=== PATIENT | female | born 1990 | race American Indian/Alaskan Native ===

== ENCOUNTER 2017-12-09 15:49 | Emergency (ER) | payer OTHER, MEDICAID ==
[2017-12-09 16:55] VITALS: BMI 25.0
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
[2017-12-09 20:57] VITALS: BP 112/70; PULSE 70; RESP 18; TEMP 97.8
[2017-12-09 21:24] VITALS: O2SAT 100
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
== END 2017-12-09 20:56 | disposition home or self-care (01) ==
LOC: C.ER 15:49
DX: S16.1XXA Strain of muscle, fascia and tendon at neck level, initial encounter (principal); S63.502A Unspecified sprain of left wrist, initial encounter; S63.501A Unspecified sprain of right wrist, initial encounter; S80.12XA Contusion of left lower leg, initial encounter; S09.90XA Unspecified injury of head, initial encounter; V43.52XA Car driver injured in collision with other type car in traffic accident, initial encounter

== ENCOUNTER 2018-02-06 17:19 | Emergency (ER) | payer MEDICAID ==
[2018-02-06 17:19] VITALS: BMI 25.0
[2018-02-06 17:28] VITALS: RESP 20; O2SAT 100
[2018-02-06 18:07] LABS: SQUAMOUS EPITHIAL 1 /hpf (0-5); URINE BILIRUBIN NEGATIVE (NEGATIVE); URINE CLARITY Clear (Clear); URINE COLOR Straw (YELLOW); URINE GLUCOSE (UA) NORMAL (Normal); URINE LEUKOCYTE ESTERASE NEG Leu/uL (Negative); URINE PROTEIN NEGATIVE (NEGATIVE)
[2018-02-06 18:13] LABS: URINE BACTERIA RARE (<OCC)
[2018-02-06 18:14] LABS: URINE BLOOD NEGATIVE (NEGATIVE)
[2018-02-06 18:17] LABS: HCG,QUALITATIVE URINE NEGATIVE (NEGATIVE)
[2018-02-06] MEDS ORDERED: Iohexol 240 (50 ml) ONE (18:46)
--- NOTE | 2018-02-06 19:54 | CT ---
EXAM: CT Abdomen and Pelvis Without Intravenous Contrast EXAM DATE/TIME: Exam ordered 02/06/2018 6:27 PM CLINICAL HISTORY: 27 years old, female; Pain; Abdominal pain; Localized; Left lower quadrant (llq); Additional info: Llq pain. TECHNIQUE: Axial computed tomography images of the abdomen and pelvis without intravenous contrast. All CT scans at this facility use one or more dose reduction techniques, viz.: automated exposure control; ma/kV adjustment per patient size (including targeted exams where dose is matched to indication; i.e. head); or iterative reconstruction technique. Coronal and sagittal reformatted images were created and reviewed. COMPARISON: No relevant prior studies available. FINDINGS: Lung bases: Unremarkable. No mass. No consolidation. ABDOMEN: Liver: Unremarkable. Gallbladder and bile ducts: A fluid fluid level is suggested within the gallbladder which may represent sludge. No calcified stones. No ductal dilation. Pancreas: Unremarkable. No ductal dilation. Spleen: Unremarkable. No splenomegaly. Adrenals: Unremarkable. No mass. Kidneys and ureters: Unremarkable. No obstructing stones. No hydronephrosis. Stomach and bowel: There're scattered colonic diverticula. No obstruction. No mucosal thickening. Appendix: No findings to suggest acute appendicitis. PELVIS: Bladder: Unremarkable. No stones. Reproductive: Unremarkable as visualized. ABDOMEN and PELVIS: Intraperitoneal space: Unremarkable. No free air. A small amount of free fluid in the pelvis.. Bones/joints: No acute fracture. No dislocation. Soft tissues: There is a diastases of the supraumbilical rectus abdominis muscles with small umbilical hernia containing fat. Vasculature: Unremarkable. No abdominal aortic aneurysm. Lymph nodes: Unremarkable. No enlarged lymph nodes. IMPRESSION: 1. No acute findings. 2. Sludge is suggested in the gallbladder. If intervention is anticipated, this should be confirmed with ultrasound. 3. Umbilical hernia containing fat. 4. Scattered colonic diverticula. No diverticulitis. 5. A small amount of free fluid in the pelvis. This can be a normal finding in a menstruating female. A pelvic ultrasound might be considered.
--- NOTE | 2018-02-06 20:17 | C.PDOC ---
Time Seen by Provider: 02/06/18 18:06 Chief Complaint (Nursing): Abdominal Pain History Per: Patient Onset/Duration Of Symptoms: Days, Worse Since (yesterday) Current Symptoms Are (Timing): Still Present Severity: Moderate Location Of Pain/Discomfort: LLQ Quality Of Discomfort: "Pain" Exacerbating Factors: None Alleviating Factors: None Additional History Per: Prior Records Last Menstral Period: Now Past Medical History Reviewed: Historical Data, Nursing Documentation, Vital Signs Vital Signs: Last Vital Signs Temp 98.7 F 02/06/18 17:27 Pulse 74 02/06/18 17:27 Resp 20 02/06/18 17:27 BP 115/76 02/06/18 17:27 Pulse Ox 100 02/06/18 17:27 - Medical History PMH: Asthma Surgical History: No Surg Hx Family History: States: Unknown Family Hx - Social History Hx Tobacco Use: Yes Hx Alcohol Use: No Hx Substance Use: No - Immunization History Hx Tetanus Toxoid Vaccination: No Hx Influenza Vaccination: No Hx Pneumococcal Vaccination: No Review Of Systems Except As Marked, All Systems Reviewed And Found Negative. Constitutional: Negative for: Fever, Weakness Cardiovascular: Negative for: Chest Pain Respiratory: Negative for: Shortness of Breath Gastrointestinal: Positive for: Abdominal Pain. Negative for: Vomiting, Diarrhea, Constipation, Melena, Hematochezia, Hematemesis Genitourinary: Negative for: Dysuria Musculoskeletal: Negative for: Neck Pain Skin: Negative for: Rash Neurological: Negative for: Weakness, Numbness Physical Exam - Physical Exam Appears: Non-toxic, No Acute Distress Skin: Normal Color, Warm, Dry, No Rash Head: Atraumatic, Normacephalic Eye(s): bilateral: Normal Inspection, PERRL, EOMI Neck: Normal ROM, Supple Cardiovascular: Rhythm Regular Respiratory: Normal Breath Sounds, No Accessory Muscle Use Gastrointestinal/Abdominal: Soft, Tenderness (LLQ), No Guarding, No Rebound Back: No CVA Tenderness Extremity: Normal ROM Neurological/Psych: Oriented x3, Normal Motor, Normal Sensation ED Course And Treatment - Laboratory Results Urine POC: Negative O2 Sat by Pulse Oximetry: 100 Pulse Ox Interpretation: Normal - CT Scan/US CT abd/pelv Other Rad Studies (CT/US): Read By Radiologist, Radiology Report Reviewed CT/US Interpretation: IMPRESSION: 1. No acute findings. . 2. Sludge is suggested in the gallbladder. If intervention is anticipated, this. should be confirmed with ultrasound. . 3. Umbilical hernia containing fat. . 4. Scattered colonic diverticula. No diverticulitis. . 5. A small amount of free fluid in the pelvis. This can be a normal finding in. a menstruating female. A pelvic ultrasound might be considered. Progress Note: Pt was seen at [facility] ED yesterday and had a normal pelvic US and labs. Reassessment Condition: Improved Progress - Interventions Interventions:: Observation - Medications Administered Oral: NSAID - Data Reviewed Data Reviewed: Lab, Diagnostic imaging, Old records - Patient Status Patient status: Mostly improved - Continuity of Care Discussed patient case with:: Patient, ED Nurse - Patient Plan Patient Plan: Discharge, F/U with PCP Disposition Counseled Patient/Family Regarding: Studies Performed, Diagnosis, Need For Followup, Rx Given - Disposition Referrals: Debra Walden MD [Non-Staff] - Disposition: HOME/ ROUTINE Disposition Time: 20:19 Condition: IMPROVED Additional Instructions: Follow up with your doctor for further evaluation and treatment. Return to the ER if you develop fever, vomiting, worsening of symptoms or if you have any other concerns. Prescriptions: Ibuprofen [Motrin Tab] 600 mg PO Q8 PRN #30 tab PRN Reason: Pain, Moderate (4-7) Forms: [employer] (Japanese), General Discharge Instructions - Clinical Impression Clinical Impression: LLQ abdominal pain
[2018-02-06 20:40] VITALS: BP 125/83; PULSE 60; TEMP 98.3
== END 2018-02-06 20:39 | disposition home or self-care (01) ==
LOC: C.ER 17:19
DX: R10.32 Left lower quadrant pain (principal)

== ENCOUNTER 2018-04-02 13:28 | Emergency (ER) | payer MEDICAID ==
[2018-04-02 13:28] VITALS: BMI 25.0
[2018-04-02 13:41] VITALS: TEMP 99.8
[2018-04-02] MEDS ORDERED: Amoxicillin-Clav 875-125 mg Tab PO STA (13:55)
--- NOTE | 2018-04-02 13:55 | C.PDOC ---
History Of Present Illness 27 yo female w/PMHx of asthma come in for evaluation of low grade fever, chills , bodyaches, malaise, sore throat gradually developed since yesterday. Otherwise , pt denies high fever, headache, dizziness, drooling, neck pain, CP, SOB, cough , wheezing, abd. pain, V/D, UTI sx. Ambulate to ED for evaluation, not in any apparent distress. Time Seen by Provider: 04/02/18 13:43 Chief Complaint (Nursing): Flu-like Symptoms History Per: Patient Onset/Duration Of Symptoms: Gradual Past Medical History Reviewed: Historical Data, Nursing Documentation, Vital Signs Vital Signs: Last Vital Signs Temp 99.8 F H 04/02/18 13:39 Pulse 103 H 04/02/18 13:39 Resp 20 04/02/18 13:39 BP 115/68 04/02/18 13:39 Pulse Ox 99 04/02/18 13:39 - Medical History PMH: Asthma Family History: States: Unknown Family Hx - Social History Hx Tobacco Use: Yes Hx Alcohol Use: No Hx Substance Use: No - Immunization History Hx Tetanus Toxoid Vaccination: Yes Hx Influenza Vaccination: No Hx Pneumococcal Vaccination: No Review Of Systems Except As Marked, All Systems Reviewed And Found Negative. Constitutional: Positive for: Fever, Chills, Malaise ENT: Positive for: Nose Discharge, Nose Congestion, Throat Pain. Negative for: Ear Pain, Ear Discharge Cardiovascular: Negative for: Chest Pain Respiratory: Negative for: Cough, Shortness of Breath, Wheezing Gastrointestinal: Negative for: Nausea, Vomiting, Abdominal Pain, Diarrhea Genitourinary: Negative for: Dysuria Musculoskeletal: Negative for: Neck Pain Skin: Negative for: Rash Neurological: Negative for: Headache, Dizziness Physical Exam - Physical Exam Appears: Well, Non-toxic, No Acute Distress Skin: Normal Color, Warm, Dry, No Rash Head: Normacephalic Eye(s): bilateral: PERRL Ear(s): Bilateral: Normal Nose: No Flaring, Discharge (scant clear B/L) Oral Mucosa: Moist Tongue: Normal Appearing Lips: Normal Appearing Throat: Erythema (mod B/L), Exudate (scant B/L), No Drooling, Other (uvula midline, no edema.) Neck: Trachea Midline, Supple Cardiovascular: Rhythm Regular, No Murmur Respiratory: No Decreased Breath Sounds, No Accessory Muscle Use, No Stridor, No Wheezing Gastrointestinal/Abdominal: Soft, No Tenderness, No Distention, No Guarding Extremity: Normal ROM, No Deformity, No Swelling Neurological/Psych: Oriented x3, Normal Speech ED Course And Treatment O2 Sat by Pulse Oximetry: 99 Pulse Ox Interpretation: Normal Progress Note: On re-evaluation, pt is afebrile, hemodynamicaly stable. Non- toxic. Tolerate po well in ED. PulsEOx 99% RA. ENT: exam c/w acute pharyngitis. uvula midline, no edema. neck: Supple, (-) meningeal sign, (-) JVD. Lungs: CTA B/L, BS equal B/L. Abd: benign. Neuorlogicaly intact. Pt advised. ref. to f/u with PMD in 2-3 days for re-eval. return to ED if any worsening or new changes. Disposition Counseled Patient/Family Regarding: Diagnosis, Need For Followup, Rx Given - Disposition Referrals: [facility] [Outside] Disposition: HOME/ ROUTINE Disposition Time: 13:51 Condition: STABLE Additional Instructions: Encourage fluids use Albuterol Inh daily Follow up with PMD in 2-3 days for re-evaluation. return to ED if any worsening or new changes. Prescriptions: Amoxicillin/Clavulanate [Augmentin 875 MG-125 MG] 1 tab PO BID #14 tab Prednisone [Deltasone] 20 mg PO DAILY #3 tablet Instructions: Sore Throat in Adults - Clinical Impression Clinical Impression: Pharyngitis
[2018-04-02] MEDS ORDERED: Amoxicillin-Clav 875-125 mg Tab PO ONE (14:03)
[2018-04-02 14:07] VITALS: BP 109/68; PULSE 84; RESP 16; O2SAT 98
== END 2018-04-02 14:06 | disposition home or self-care (01) ==
LOC: C.ER 13:28
DX: J02.9 Acute pharyngitis, unspecified (principal); Z72.0 Tobacco use

== ENCOUNTER 2018-05-08 05:05 | Emergency (ER) | payer MEDICAID ==
[2018-05-08 05:05] VITALS: BMI 25.0
[2018-05-08 05:32] VITALS: RESP 20; TEMP 98
[2018-05-08 06:21] LABS: SQUAMOUS EPITHIAL < 1 /hpf (0-5); URINE BILIRUBIN NEGATIVE (NEGATIVE); URINE BLOOD NEGATIVE (NEGATIVE); URINE CLARITY Clear (Clear); URINE COLOR Colorless (YELLOW); URINE GLUCOSE (UA) NORMAL (Normal); URINE LEUKOCYTE ESTERASE NEG Leu/uL (Negative); URINE PROTEIN NEGATIVE (NEGATIVE); URINE UROBILINOGEN NORMAL mg/dL (0.2-1.0)
--- NOTE | 2018-05-08 06:43 | C.PDOC ---
History Of Present Illness 27 year old female presents to the ER with a complaint of pain to the left lower back that radiates to the left inguinal area for the past 2 days. Patient states the pain worsens with movement and reports she does a lot of moving and bending at work. Patient took at motrin 400mg while at work today but felt worse after which prompted visit. Denies urinary symptoms, trauma, fall, injury , PMHx of similar, weakness, numbness, or incontinence. Time Seen by Provider: 05/08/18 05:39 Chief Complaint (Nursing): Back Pain History Per: Patient History/Exam Limitations: no limitations Onset/Duration Of Symptoms: Days Current Symptoms Are (Timing): Still Present Quality Of Discomfort: Unable To Describe Previous Symptoms: None Associated Symptoms: None Recent travel outside of the [place]: No Past Medical History Reviewed: Historical Data, Nursing Documentation, Vital Signs Vital Signs: Last Vital Signs Temp 98 F 05/08/18 05:26 Pulse 64 05/08/18 05:26 Resp 20 05/08/18 05:26 BP 119/77 05/08/18 05:26 Pulse Ox 100 05/08/18 06:47 - Medical History PMH: Asthma Family History: States: Unknown Family Hx - Social History Hx Tobacco Use: Yes Hx Alcohol Use: No Hx Substance Use: No - Immunization History Hx Tetanus Toxoid Vaccination: Yes Hx Influenza Vaccination: No Hx Pneumococcal Vaccination: No Review Of Systems Constitutional: Negative for: Fever, Chills Genitourinary: Negative for: Dysuria, Incontinence, Hematuria Musculoskeletal: Positive for: Back Pain (Radiating to inguinal area) Neurological: Negative for: Weakness, Numbness Physical Exam - Physical Exam Appears: Non-toxic Skin: Normal Color, Warm, Dry Head: Atraumatic, Normacephalic Eye(s): bilateral: Normal Inspection Back: No Vertebral Tenderness, Paraspinal Tenderness (Left lumbar), Straight Leg Raising (Positive at 40 degrees) Extremity: Normal ROM (x4) Neurological/Psych: Oriented x3 ED Course And Treatment O2 Sat by Pulse Oximetry: 100 (Room air) Pulse Ox Interpretation: Normal Progress Note: Urinalysis ordered, were negative. Motrin administered. Patient is resting comfortably in no acute distress, vitals are stable, she is ambulatory without any difficulty, will discharge home with instructions to follow up with PMD. 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 - Scribe Statement The provider has reviewed the documentation as recorded by the Scribhui Vasques All medical record entries made by the Rachnaibhui were at my direction and personally dictated by me. I have reviewed the chart and agree that the record accurately reflects my personal performance of the history, physical exam, medical decision making, and the department course for this patient. I have also personally directed, reviewed, and agree with the discharge instructions and disposition.
[2018-05-08 07:21] VITALS: BP 110/68; PULSE 88; O2SAT 97
== END 2018-05-08 07:29 | disposition home or self-care (01) ==
LOC: C.ER 05:05
DX: S39.012A Strain of muscle, fascia and tendon of lower back, initial encounter (principal); X58.XXXA Exposure to other specified factors, initial encounter

== ENCOUNTER 2018-06-12 17:15 | Emergency (ER) | payer MEDICAID ==
[2018-06-12 17:15] VITALS: BMI 25.0
[2018-06-12 17:28] VITALS: BP 113/70; PULSE 89; RESP 18; TEMP 98.8; O2SAT 100
[2018-06-12 17:57] LABS: BASO % 0.6 % (0.0-2.0); EOS # 0.1 K/uL (0.0-0.7); EOS % 1.4 % (0.0-4.0); HEMOGLOBIN 12.2 g/dL (11.0-16.0); LYMPH # 1.2 K/uL (1.0-4.3); LYMPH % 24.7 % (20.0-40.0); MEAN CELL VOLUME 81.4 fL (81.0-99.0); MEAN CORPUSCULAR HEMOGLOBIN 26.6 pg (27.0-31.0); MEAN CORPUSCULAR HGB CONC 32.6 g/dL (33.0-37.0); MEAN PLATELET VOLUME 8.6 fL (7.2-11.7); MONO # 0.5 K/uL (0.0-0.8); NEUT # 3.1 K/uL (1.8-7.0); NEUT % 62.3 % (50.0-75.0); NRBC % 0.1 % (0.0-2.0); RBC 4.59 Mil/uL (3.80-5.20); RED CELL DISTRIBUTION WIDTH 17.7 % (11.5-14.5)
[2018-06-12 18:09] LABS: URINE BILIRUBIN NEGATIVE (NEGATIVE); URINE BLOOD 1+ (NEGATIVE); URINE CLARITY Clear (Clear); URINE COLOR Straw (YELLOW); URINE GLUCOSE (UA) NORMAL (Normal); URINE LEUKOCYTE ESTERASE NEG Leu/uL (Negative); URINE PROTEIN NEGATIVE (NEGATIVE); URINE UROBILINOGEN NORMAL mg/dL (0.2-1.0)
--- NOTE | 2018-06-12 18:09 | C.PDOC ---
History Of Present Illness 27 y/o female presents to the ED complaining of persistent vaginal spotting for the past 2 weeks. LMP was 03/05. States she has not yet done a home test. Patient is also complaining of occasional cramping. Otherwise denies any vaginal discharge, dysuria, frequency, nausea, vomiting, fever, chills, or other associated symptoms. Time Seen by Provider: 06/12/18 17:39 Chief Complaint (Nursing): Abdominal Pain History Per: Patient History/Exam Limitations: no limitations Onset/Duration Of Symptoms: Days Current Symptoms Are (Timing): Still Present Quality Of Discomfort: Cramping Abnormal Vaginal Bleeding: Yes Last Menstral Period: 03/05/18 Past Medical History Reviewed: Historical Data, Nursing Documentation, Vital Signs Vital Signs: Last Vital Signs Temp 98.8 F 06/12/18 17:24 Pulse 89 06/12/18 17:24 Resp 18 06/12/18 17:24 BP 113/70 06/12/18 17:24 Pulse Ox 100 06/12/18 18:11 - Medical History PMH: Asthma Family History: States: Unknown Family Hx - Social History Hx Tobacco Use: Yes Hx Alcohol Use: Yes Hx Substance Use: No - Immunization History Hx Tetanus Toxoid Vaccination: Yes Hx Influenza Vaccination: No Hx Pneumococcal Vaccination: No Review Of Systems Except As Marked, All Systems Reviewed And Found Negative. Constitutional: Negative for: Fever, Chills, Weakness Respiratory: Negative for: Shortness of Breath Gastrointestinal: Positive for: Abdominal Pain (cramping). Negative for: Nausea , Vomiting, Diarrhea Genitourinary: Positive for: Vaginal Bleeding. Negative for: Dysuria, Frequency , Incontinence, Vaginal Discharge Neurological: Negative for: Dizziness Physical Exam - Physical Exam Appears: Non-toxic, No Acute Distress Skin: Normal Color, Warm, Dry Head: Atraumatic, Normacephalic Eye(s): bilateral: Normal Inspection, PERRL, EOMI Oral Mucosa: Moist Neck: Normal ROM, Supple Chest: Symmetrical Cardiovascular: Rhythm Regular, No Murmur Respiratory: Normal Breath Sounds, No Accessory Muscle Use, Other (NARD) Gastrointestinal/Abdominal: Soft, No Tenderness, No Distention, No Guarding, No Rebound Back: Normal Inspection, No CVA Tenderness, No Vertebral Tenderness Extremity: Bilateral: Atraumatic, Normal Color And Temperature, Normal ROM Pulses: Left Radial: Normal, Right Radial: Normal Neurological/Psych: Oriented x3, Normal Speech, Normal Cranial Nerves Gait: Steady ED Course And Treatment - Laboratory Results Result Diagrams: 06/12/18 17:53 06/12/18 17:53 Urine POC: Negative O2 Sat by Pulse Oximetry: 100 (RA) Pulse Ox Interpretation: Normal Progress - Data Reviewed Data Reviewed: Lab, Old records Medical Decision Making Medical Decision Making: Impression: Vaginal spotting, Abdominal cramping Initial Plan: --Beta-HCG quant --CMP --CBC --Urinalysis --POC urine preg --Blood type/screen --Reassessment and disposition Disposition Counseled Patient/Family Regarding: Studies Performed, Diagnosis, Need For Followup - Disposition [facility]errals: [facility]Outside] [facility] [Outside] [facility] [Other] Disposition: HOME/ ROUTINE Disposition Time: 18:32 Condition: GOOD Instructions: Absent or Irregular Periods Forms: [employer] (Belarusian), Work Excuse - Clinical Impression Clinical Impression: Irregular menses - Scribe Statement The provider has reviewed the documentation as recorded by the Lillian Rodriguez Provider Attestation: All medical record entries made by the Rachnaibhui were at my direction and personally dictated by me. I have reviewed the chart and agree that the record accurately reflects my personal performance of the history, physical exam, medical decision making, and the department course for this patient. I have also personally directed, reviewed, and agree with the discharge instructions and disposition.
[2018-06-12 18:15] LABS: ALB/GLOB RATIO 1.5 (1.0-2.1); ALBUMIN 4.5 g/dL (3.5-5.0); ALT/SGPT 33 U/L (9-52); AST/SGOT 27 U/L (14-36); BLOOD UREA NITROGEN 15 mg/dL (7-17); CALCIUM 9.3 mg/dl (8.6-10.4); GFR AFRICAN-AMERICAN > 60; GFR NON-AFRICAN AMERICAN > 60
== END 2018-06-12 18:40 | disposition home or self-care (01) ==
LOC: C.ER 17:15
DX: N92.6 Irregular menstruation, unspecified (principal)

== ENCOUNTER 2019-02-17 03:13 | Emergency (ER) | payer MEDICAID ==
[2019-02-17 03:14] VITALS: BMI 25.0
[2019-02-17 03:23] VITALS: BP 132/85; PULSE 84; RESP 16; TEMP 99; O2SAT 100
--- NOTE | 2019-02-17 04:11 | C.PDOC ---
History Of Present Illness 28 year old female presents with right ear ache for the past 5 days. Patient states she feels like her ear is clogged. She reports mild URI recently that has now resolved. Denies fever, sick contact, or recent travel. Time Seen by Provider: 02/17/19 03:43 Chief Complaint (Nursing): ENT Problem History Per: Patient History/Exam Limitations: None Onset/Duration Of Symptoms: Days (2) Current Symptoms Are (Timing): Still Present Quality (Ear): Other (Ache) Anticoagulant/Antiplatlet Use?: No Past Medical History Reviewed: Historical Data, Nursing Documentation, Vital Signs Vital Signs: Last Vital Signs Temp 99.0 F 02/17/19 03:19 Pulse 84 02/17/19 03:19 Resp 16 02/17/19 03:19 BP 132/85 02/17/19 03:19 Pulse Ox 100 02/17/19 03:19 - Medical History PMH: Asthma Family History: States: Unknown Family Hx - Social History Hx Tobacco Use: Yes Hx Alcohol Use: Yes Hx Substance Use: No - Immunization History Hx Tetanus Toxoid Vaccination: Yes Hx Influenza Vaccination: No Hx Pneumococcal Vaccination: No Review Of Systems Constitutional: Negative for: Fever, Chills ENT: Positive for: Ear Pain. Negative for: Nose Discharge, Nose Congestion Respiratory: Negative for: Cough Physical Exam - Physical Exam Appears: Non-toxic, No Acute Distress Skin: Normal Color, Warm Head: Atraumatic, Normacephalic Eye(s): bilateral: Normal Inspection Ear(s): Bilateral: Normal Nose: Normal Oral Mucosa: Moist Throat: Normal, No Erythema, No Exudate Neck: Normal, Supple Neurological/Psych: Oriented x3, Normal Speech ED Course And Treatment O2 Sat by Pulse Oximetry: 100 (Room air) Pulse Ox Interpretation: Normal Progress Note: Motrin administered. Patient is resting comfortably in no acute distress, vitals are stable, will discharge home with instructions to follow up with PMD. Disposition Counseled Patient/Family Regarding: Diagnosis, Need For Followup - Disposition Referrals: [facility] [Outside] Eduardo Siddiqui MD [Staff Provider] - Disposition: HOME/ ROUTINE Disposition Time: 04:08 Condition: STABLE Additional Instructions: Take motrin for pain Use zyrtec once daily Return to ER if increasing pain or worse Prescriptions: Cetirizine HCl [Zyrtec] 10 mg PO DAILY #14 capsule Ibuprofen [Motrin] 600 mg PO Q6H #20 tab Instructions: Eustachian Tube Problems (DC) - Clinical Impression Clinical Impression: Ear pain, right - PA / EYE SPECIALIST / Resident Statement MD/DO has reviewed & agrees with the documentation as recorded. - Scribe Statement The provider has reviewed the documentation as recorded by the Scribe Merlin Vasques All medical record entries made by the Scribe were at my direction and personally dictated by me. I have reviewed the chart and agree that the record accurately reflects my personal performance of the history, physical exam, medical decision making, and the department course for this patient. I have also personally directed, reviewed, and agree with the discharge instructions and disposition.
== END 2019-02-17 04:22 | disposition home or self-care (01) ==
LOC: C.ER 03:13
DX: H92.01 Otalgia, right ear (principal)